=== PATIENT | female | born 1990 | race Hispanic/Latino ===

== ENCOUNTER 2021-09-26 14:19 | Outpatient (CLI) | payer BC ==
--- NOTE | 2021-09-27 08:02 | Magnetic Resonance Report ---
MRI LEFT KNEE WITHOUT CONTRAST INDICATION / CLINICAL INFORMATION: KNEE PAIN. TECHNIQUE: Multiplanar, multisequence MR images were obtained. No contrast used. COMPARISON: None available. FINDINGS: ACL: No significant abnormality. PCL: No significant abnormality. DISTAL QUADRICEPS TENDON: No significant abnormality. PATELLAR TENDON: No significant abnormality. MEDIAL MENISCUS: No significant abnormality. LATERAL MENISCUS: No significant abnormality. POSTEROLATERAL CORNER: No significant abnormality. MCL: No significant abnormality. LCL: No significant abnormality. DISTAL IT BAND: No significant abnormality. PATELLOFEMORAL ALIGNMENT: No significant abnormality. ARTICULAR CARTILAGE: No significant chondrosis or articular cartilage defect. JOINT SPACE: No significant joint effusion or synovitis. No significant popliteal cyst. No intra-bailey cular bodies. BONES: There is a crescentic nondisplaced subchondral fracture in the lateral femoral condyle. [place] ing articular cartilage is intact and there is no significant impaction. No additional fracture. No o sseous lesion. SOFT TISSUES: No significant abnormality. ADDITIONAL FINDINGS: None. IMPRESSION: 1. Nondisplaced subchondral fracture in the lateral femoral condyle. Overlying articular cartilage ap pears intact. Signer Name: Jt Fisher MD Signed: 09/27/2021 7:57 AM Workstation Name: [id number]
== END 2021-09-26 14:20 | disposition home or self-care (01) ==
LOC: XRAY 14:19
DX: S82.092A Other fracture of left patella, initial encounter for closed fracture (principal); M25.362 Other instability, left knee; X58.XXXA Exposure to other specified factors, initial encounter; Y93.89 Activity, other specified; Y92.89 Other specified places as the place of occurrence of the external cause; Y99.8 Other external cause status
CPT/HCPCS: 73721

== ENCOUNTER 2021-12-11 13:36 | Outpatient (CLI) | payer BC ==
--- NOTE | 2021-12-11 15:02 | Magnetic Resonance Report ---
MRI LEFT KNEE WITHOUT CONTRAST INDICATION / CLINICAL INFORMATION: PERSISTENT INSTABILITY AND PAIN. TECHNIQUE: Multiplanar, multisequence MR images were obtained. No contrast used. COMPARISON: Left knee MRI 09/26/2021. FINDINGS: ACL: No significant abnormality. PCL: No significant abnormality. DISTAL QUADRICEPS TENDON: No significant abnormality. PATELLAR TENDON: No significant abnormality. MEDIAL MENISCUS: No significant abnormality. LATERAL MENISCUS: No significant abnormality. MCL: No significant abnormality. LCL: No significant abnormality. DISTAL IT BAND: No significant abnormality. PATELLOFEMORAL ALIGNMENT: No significant abnormality. ARTICULAR CARTILAGE: No significant chondrosis or articular cartilage defect. JOINT SPACE: No significant joint effusion or synovitis. No significant popliteal cyst. No intra-bailey cular bodies. BONES: Near-complete resolution of previously seen lateral femoral condyle fracture. No new fracture. No aggressive osseous lesion. SOFT TISSUES: No significant abnormality. ADDITIONAL FINDINGS: None. IMPRESSION: 1. Near complete resolution of previously seen left femoral condyle subchondral fracture. No acute ab normality on today's exam. Report dictated by: Abelardo Silverio MD Report dictated on: 12/11/2021 1:50 PM I have reviewed the images, agree with this report, and edited this report as needed. Signer Name: Narayan Connors MD Signed: 12/11/2021 2:57 PM Workstation Name: [id number]
== END 2021-12-11 13:37 | disposition home or self-care (01) ==
LOC: MRI 13:36
PROVIDERS: ATTEND Orthopaedic Surgery
DX: M25.362 Other instability, left knee (principal)
CPT/HCPCS: 73721